=== PATIENT | female | born 1960 | race Caucasian/White ===

== ENCOUNTER 2023-12-14 12:31 | Emergency (ER) | payer MEDICARE, SELFPAY ==
[2023-12-14 12:33] VITALS: BP 123/84
[2023-12-14 12:57] LABS: % Basophils 0.6 % (0-2); % Eosinophils 3.2 % (0-6); % Immature Granulocytes 0.3 % (0-0.5); % Neutrophils 65.9 % (42.2-75.2); Absolute Eosinophils 0.2 10^3/uL (0-0.7); Absolute Lymphocytes 1.5 10^3/uL (1.2-3.4); Absolute Monocytes 0.4 10^3/uL (0.1-0.6); Absolute Neutrophils 4.2 10^3/uL (1.4-6.5); Hematocrit 39.9 % (37.0-47.0); Hemoglobin 13.7 g/dL (12.0-16.0); Mean Corp Hgb Conc. 34.3 g/dL (33.0-37.0); Mean Corpuscular Hgb 29.7 pg (27.0-31.0); Mean Corpuscular Volume 86.6 fL (81.0-99.0); Mean Platelet Volume 10.9 fL (7.4-10.4); Nucleated Red Blood Cells % 0 %; Platelet Count 178 10^3/uL (130-400); Red Blood Cell Count 4.61 10^6/uL (4.20-5.40); Red Cell Dist. Width 13.4 % (11.5-14.5); White Blood Cell Count 6.3 10^3/uL (4.8-10.8)
[2023-12-14 13:13] LABS: ALT (SGPT) 15 U/L (0-35); AST (SGOT) 26 U/L (14-36); Albumin 4.6 g/dl (3.5-5.0); Alkaline Phosphatase 76 U/L (38-126); Blood Urea Nitrogen 24 mg/dl (7-17); Calcium 9.8 mg/dl (8.4-10.2); Carbon Dioxide 27 mmol/L (22-30); Chloride 105 mmol/L (98-107); Glucose 104 mg/dl (70-99); Lipase 168 U/L (23-300); Potassium 4.4 mmol/L (3.5-5.1); Sodium 140 mmol/L (135-145); Total Bilirubin 0.6 mg/dl (0.2-1.3); Total Protein 7.2 g/dl (6.3-8.2); eGFR > 60.00
[2023-12-14 13:24] VITALS: BP 143/88
--- NOTE | 2023-12-14 13:36 | ED.GENMED ---
History of Present Illness
General
Chief Complaint: Abdominal Pain
Source: patient and spouse
Exam Limitations: none
Time Seen by Provider: 12/14/23 13:25
Nursing documentation reviewed up to this point in time: agreed with
History of Present Illness
History of Present Illness:
63-year-old female presents emergency room complaining of upper abdominal pain for the past 3 to 4 days. She went to her primary care doctor and was sent to the emergency department. She complains of nausea. She is taking Wegovy. No other
aggravating relieving factors.
Past History
Past History
ED Past Medical History: Other (Anxiety)
ED Past Surgical History: None
Social History
Tobacco: Non-smoker
Alcohol: None
Drug: None
Personal:
Living: with family
Review of Systems
Review of Systems
Allergies reviewed?: Yes
All Other Systems: Not applicable
Constitutional: Reports no symptoms
EENT: Reports no symptoms
Respiratory: Reports no symptoms
Cardiac: Reports no symptoms
ABD/GI: Reports abdominal pain and nausea
: Reports no symptoms
Musculoskeletal: Reports no symptoms
Skin: Reports no symptoms
Neurological: Reports no symptoms
Endocrine: Reports no symptoms
Hematologic/Lymphatic: Reports no symptoms
Psychiatric: Reports no symptoms
Phy Exam
Physical Exam
Physical Exam:
Physical Exam
General: no apparent distress, not acutely ill
Neck: supple. no meningeal signs. normal posterior pharynx
Heart: s1/s2 regular rate and rhythm, no murmur. equal radial
pulses.
HEENT: Pupils equal round reactive to light, EOMI
Lungs: no acute respiratory distress. clear bilaterally
Abdomen: normal bowel sounds. mild LLQ tenderness, no rebound or guarding. no CVAT
Neuro: alert and oriented. no focal neurological deficits cranial nerves II through XII intact
Skin: no rash
Psychiatric: well kept. interactive and cooperative
Extremities: no edema. no calf tenderness. negative homans. good distal pulses
Course
Orders/Labs/Results
Orders:
Orders
12/14/23 12:38
Electrocardiogram (*1) Urgent
Reason for Study: Abdominal Pain
EKG- Treatment ONCE
12/14/23 12:42
Complete Blood Count/With Diff Urgent
Comprehensive Metabolic Panel Urgent
Lipase Urgent
12/14/23 14:00
CT Abd/pelvis W Iv Cont Urgent
Comment:
Reason For Exam: left side abdominal pain
Abnormal Lab Results
12/14/23
12:42
MPV 10.9 H fL
(7.4-10.4)
BUN 24 H mg/dl
(7-17)
Glucose 104 H mg/dl
(70-99)
12/14/23 12:42
12/14/23 12:42
Vital Signs
Initial and Last Documented VS:
Initial Vital Signs
Temp Pulse Resp BP Pulse Ox
98.2 F 75 16 123/84 97
12/14/23 12:33 12/14/23 12:33 12/14/23 12:33 12/14/23 12:33 12/14/23 12:33
Last Documented Vital Signs
Temp Pulse Resp BP Pulse Ox
98.2 F 75 16 123/68 99
12/14/23 12:33 12/14/23 12:33 12/14/23 12:33 12/14/23 14:14 12/14/23 14:15
MDM/Problems Addressed
Differential Diagnosis Includes:
Bowel obstruction, pancreatitis, diverticulitis
MDM/Problems Addressed:
63-year-old female with constipation, abdominal pain, likely side effect of Wegovy. Patient stable for discharge.
*Radiology
Radiology exam reviewed: radiology read reviewed (CT abdomen pelvis no acute findings, liver lesion that will require MRI follow-up.)
*Pulse Oximetry
Patient hypoxic: no
*EKG
Interpreted by ED Provider?: Yes
EKG Intrepretation Date: 12/14/23
EKG Intrepretation Time: 12:44
Interpretation: normal
Comparison EKG: no changes
Heart Rate: 66
Rate: normal
Rhythm: sinus
[place]: normal axis
Interval: normal interval
QRS Pattern: normal QRS
Ischemia: no ischemia
*Critical Care Note
Total Time (30-74mins, 75-104mins- exclusive of procedures): Not Applicable
Patient Management
Social determinants of health affecting care: Living situation
Escalation/DeEscalation of care consider admission/obs:
Admit not indicated
Update Note
Update Note:
Patient instructed to follow-up with primary care to get MRI of abdomen. These instructions were handwritten on patient's discharge instructions.
ED Attending Note
-
Portions of this chart may have been created with voice recognition software.� Occasional wrong word or��sound alike� substitutions may have occurred due to the inherent limitations of voice recognition software.
Discharge Plan
Departure
Patient Disposition: Home (Routine Discharge)
Date of Disposition: 12/14/23
Time of Disposition: 16:37
Patient with high blood pressure during this ER visit?: Yes
Condition: Good
Discharge Problem:
Abdominal pain, Constipation
Instructions: Constipation, Adult (DC), Abdominal Pain, BLOOD PRESSURE
Prescriptions:
No Action
oxycodone-acetaminophen 5 MG/325 MG tablet
1 tab PO NOW
ibuprofen 600 MG tablet
600 mg PO Q4HPRN PRN (Reason: pain)
amoxicillin-pot clavulanate 1 TABLET tablet
1 tab PO Q12
clonazepam 0.5 MG tablet
0.5 mg PO HS
indomethacin 25 MG capsule
25 mg PO TID Qty: 20 0RF
Rx Instructions:
with food
hydrocodone-acetaminophen [Vicodin] 1 EACH tablet
1 - 2 ea PO Q6H PRN (Reason: pain) Qty: 20 0RF
Referrals:
Leandra Sheridan, DO [Family Provider] - Call in 1-3 days for appt
Interventions
Interventions:
*Risk Screen - Suicide Last Done: 12/14/23 13:25
*General Assessment Last Done: 12/14/23 12:33
*Neglect/Abuse Screening Last Done: 12/14/23 13:25
ED- Fall Risk Assessment Last Done: 12/14/23 13:49
*ED COVID-19 Vaccine History Last Done: 12/14/23 12:33
*Nursing Disposition Last Done: 12/14/23 16:56
CS-Avyknf-Kuftrmeqat Assessment Last Done: 12/14/23 13:48
Discharge Date and Time
Discharge Date/Time: 12/14/23 16:57
Print Language: SERBIAN
[2023-12-14 14:00] VITALS: BP 110/72
[2023-12-14 14:14] VITALS: BP 123/68
== END 2023-12-14 16:57 | disposition home or self-care (01) ==
LOC: EMR 12:31
PROVIDERS: Emergency Medicine; EMERGENCY PHYSICIAN Emergency Medicine; FAMILY PHYSICIAN Family Medicine
DX: R10.10 Upper abdominal pain, unspecified (principal); K59.00 Constipation, unspecified; R03.0 Elevated blood-pressure reading, without diagnosis of hypertension
CPT/HCPCS: 99285; 74177; 80053; 83690; 85025; 93005; Q9967

== ENCOUNTER → 2024-01-21 11:39 | Outpatient (REF) | payer MEDICARE, SELFPAY | LOC: PAVMRI 11:39 | PROVIDERS: ATTENDING PHYSICIAN Family Medicine | DX: R93.2 Abnormal findings on diagnostic imaging of liver and biliary tract (principal) | CPT/HCPCS: 74183; A9575 ==

== ENCOUNTER → 2024-04-27 08:37 | Outpatient (REF) | payer MEDICARE, SELFPAY | LOC: HWWDC 08:37 | PROVIDERS: ATTENDING PHYSICIAN Obstetrics & Gynecology Gynecology; FAMILY PHYSICIAN Family Medicine | DX: Z12.31 Encounter for screening mammogram for malignant neoplasm of breast (principal); R29.890 Loss of height; N95.1 Menopausal and female climacteric states; Z78.0 Asymptomatic menopausal state | CPT/HCPCS: 77063; 77067; 77080 ==

== ENCOUNTER → 2025-01-11 13:16 | Outpatient (REF) | payer MEDICARE, SELFPAY ==
[2025-01-11 14:50] LABS: Hematocrit 39.0 % (37.0-47.0); Hemoglobin 12.9 g/dL (12.0-16.0); Mean Corp Hgb Conc. 33.1 g/dL (33.0-37.0); Mean Corpuscular Volume 86.1 fL (81.0-99.0); Nucleated Red Blood Cells % 0 %; Platelet Count 179 10^3/uL (130-400); Red Cell Dist. Width 13.3 % (11.5-14.5)
[2025-01-11 15:06] LABS: ALT (SGPT) 18 U/L (0-35); AST (SGOT) 25 U/L (14-36); Albumin 4.7 g/dl (3.5-5.0); Alkaline Phosphatase 70 U/L (38-126); Blood Urea Nitrogen 24 mg/dl (7-17); Calcium 9.8 mg/dl (8.4-10.2); Carbon Dioxide 29 mmol/L (22-30); Chloride 105 mmol/L (98-107); Glucose 84 mg/dl (70-99); Potassium 4.2 mmol/L (3.5-5.1); Sodium 138 mmol/L (135-145); Total Protein 7.5 g/dl (6.3-8.2); eGFR > 60.00
== END ==
LOC: RAD 13:16
PROVIDERS: ATTENDING PHYSICIAN Physician Assistant Medical; FAMILY PHYSICIAN Family Medicine
DX: R10.31 Right lower quadrant pain (principal); M25.551 Pain in right hip
CPT/HCPCS: 36415; 73502; 76705; 80053; 85025

== ENCOUNTER → 2025-01-12 16:58 | Outpatient (REF) | payer MEDICARE, SELFPAY | LOC: RAD 16:58 | PROVIDERS: ATTENDING PHYSICIAN Physician Assistant Medical | DX: R10.31 Right lower quadrant pain (principal) | CPT/HCPCS: 74178; Q9967 ==

== ENCOUNTER → 2025-02-07 08:24 | Outpatient (REF) | payer MEDICARE, SELFPAY | LOC: HWRAD 08:24 | PROVIDERS: ATTENDING PHYSICIAN Obstetrics & Gynecology Gynecology; FAMILY PHYSICIAN Family Medicine | DX: R10.20 Pelvic and perineal pain unspecified side (principal) | CPT/HCPCS: 76830; 76856 ==

== ENCOUNTER → 2025-02-19 09:20 | Outpatient (REF) | payer MEDICARE, SELFPAY | LOC: HWRAD 09:20 | PROVIDERS: ATTENDING PHYSICIAN Internal Medicine; FAMILY PHYSICIAN Family Medicine | DX: N28.1 Cyst of kidney, acquired (principal) | CPT/HCPCS: 76775 ==

== ENCOUNTER → 2025-04-09 11:21 | Outpatient (REF) | payer MEDICARE, SELFPAY | LOC: MRI 3T 11:21 | PROVIDERS: ATTENDING PHYSICIAN Specialist; FAMILY PHYSICIAN Family Medicine | DX: K76.89 Other specified diseases of liver (principal) | CPT/HCPCS: 74183; A9575 ==